=== PATIENT | male | born 1985 | race Caucasian/White ===

== ENCOUNTER 2017-08-27 18:41 | Emergency (ER) | payer MEDICAID ==
[2017-08-27 18:59] VITALS: BP 135/75; PULSE 76; RESP 18; TEMP 98.6; O2SAT 99
--- NOTE | 2017-08-27 19:24 | ED PDOC ---
Lower Extremity Pain/Injury Time Seen by Provider: 08/27/17 19:05 Chief Complaint (Nursing): Lower Extremity Problem/Injury Chief Complaint (Provider): Lt knee pain History Per: Patient History/Exam Limitations: no limitations Onset/Duration Of Symptoms: Days (1) Additional History Per: Patient Additional Complaint(s): 32yo male, no past medical history, presents to ED for evaluation of left knee pain present since yesterday. Patient states he might have injured himself at work but is unsure of the mechanism. Patient reports lópez worsens when he hyper- extends his knee and states the pain is present mostly under his patella. No numbness, tingling, weakness. No other complaints. Past Medical History Reviewed: Historical Data, Nursing Documentation, Vital Signs Vital Signs: Last Vital Signs Temp 98.6 F 08/27/17 18:58 Pulse 76 08/27/17 18:58 Resp 18 08/27/17 18:58 BP 135/75 08/27/17 18:58 Pulse Ox 99 08/27/17 18:58 - Medical History PMH: Gastritis Denies: Asthma (Childhood asthma) - Surgical History Surgical History: No Surg Hx - Family History Family History: States: No Known Family Hx, Unknown Family Hx - Home Medications Home Medications: Ambulatory Orders Medication Instructions Recorded Dicyclomine [Bentyl] 20 mg PO Q12 PRN #20 tab 07/22/15 Ondansetron ODT [Zofran ODT] 4 mg PO Q6H PRN #16 odt 07/22/15 Dicyclomine [Bentyl] 20 mg PO Q12 PRN #20 tab 12/08/16 Cyclobenzaprine [Cyclobenzaprine 10 mg PO BID #14 tab 08/27/17 HCl] Ibuprofen [Motrin] 400 mg PO Q6 #30 tab 08/27/17 - Allergies Allergies/Adverse Reactions: Allergies Allergy/AdvReac Type Severity Reaction Status Date / Time No Known Allergies Allergy Verified 07/21/15 22:52 Review of Systems Musculoskeletal: Positive for: Leg Pain (left knee) Neurological: Negative for: Weakness, Numbness, Other (tingling) Physical Exam - Reviewed Nursing Documentation Reviewed: Yes Vital Signs Reviewed: Yes - Physical Exam Appears: Positive for: Non-toxic, No Acute Distress Skin: Positive for: Normal Color Eye Exam: Positive for: Normal appearance Neck: Positive for: Supple Cardiovascular/Chest: Positive for: Regular Rate, Rhythm Respiratory: Positive for: Normal Breath Sounds. Negative for: Respiratory Distress Extremity: Positive for: Normal ROM, Tenderness (tenderness to palpation of left anterior knee). Negative for: Calf Tenderness, Deformity, Swelling Neurologic/Psych: Positive for: Alert, Oriented. Negative for: Motor/Sensory Deficits - ECG O2 Sat by Pulse Oximetry: 99 (RA) Pulse Ox Interpretation: Normal Medical Decision Making Medical Decision Making: Time: 1910 Impression: left knee injury, most likely ACL injury Plan: -- XR left knee-NAD no acute injury noted on xray will place pt in knee immobilizer. advised to f.u with orthopedics and pmd elevate and ice with motrin. Reassess Scribe Attestation: Documented by Adela Lema acting as a scribe for GUSTAVO Mcdaniels Provider Attestation: All medical record entries made by the Scribe were at my direction and personally dictated by me. I have reviewed the chart and agree that the record accurately reflects my personal performance of the history, physical exam, medical decision making, and the department course for this patient. I have also personally directed, reviewed, and agree with the discharge instructions and disposition. Disposition - Clinical Impression Clinical Impression: Knee injury - Patient ED Disposition Is Patient to be Admitted: No Counseled Patient/Family Regarding: Studies Performed, Diagnosis, Need For Followup, Rx Given - Disposition Referrals: [facility] [place] [Outside] Disposition: Routine/Home Disposition Time: 19:37 Condition: STABLE Prescriptions: Cyclobenzaprine [Cyclobenzaprine HCl] 10 mg PO BID #14 tab Ibuprofen [Motrin] 400 mg PO Q6 #30 tab Instructions: Knee Immobilizer (ED) Forms: [employer] ([place])
--- NOTE | 2017-08-28 12:02 | RAD ---
PROCEDURE: Left Knee Radiographs. HISTORY: Pain. COMPARISON: None. FINDINGS: BONES: No acute fracture or destructive bony lesion identified. JOINTS: Normal. No osteoarthritis. JOINT EFFUSION: None. OTHER FINDINGS: None. IMPRESSION: Unremarkable radiographs of the left knee.
== END 2017-08-27 20:27 | disposition home or self-care (01) ==
LOC: H.ER 18:41
DX: S89.92XA Unspecified injury of left lower leg, initial encounter (principal); X50.9XXA Other and unspecified overexertion or strenuous movements or postures, initial encounter; Y92.89 Other specified places as the place of occurrence of the external cause
CPT/HCPCS: 29530; 73562; 99283; L1830